=== PATIENT | female | born 1995 | race Two or more races ===

== ENCOUNTER 2022-02-09 16:01 | Outpatient (CLI) | payer OTHER | END 2022-02-09 17:23 | disposition home or self-care (01) | LOC: PRENATAL 16:01 | PROVIDERS: ATTEND Obstetrics & Gynecology Maternal & Fetal Medicine | DX: O35.0XX0 Maternal care for (suspected) central nervous system malformation in fetus, not applicable or unspecified (principal); O35.3XX0 Maternal care for (suspected) damage to fetus from viral disease in mother, not applicable or unspecified; O99.210 Obesity complicating pregnancy, unspecified trimester; O28.1 Abnormal biochemical finding on antenatal screening of mother; Z3A.20 20 weeks gestation of pregnancy ==

== ENCOUNTER 2022-05-06 15:10 | Outpatient (CLI) | payer OTHER | END 2022-05-06 16:45 | disposition home or self-care (01) | LOC: PRENATAL 15:10 | PROVIDERS: ATTEND Obstetrics & Gynecology Maternal & Fetal Medicine | DX: O26.849 Uterine size-date discrepancy, unspecified trimester (principal); O35.0XX0 Maternal care for (suspected) central nervous system malformation in fetus, not applicable or unspecified; O99.210 Obesity complicating pregnancy, unspecified trimester; O28.1 Abnormal biochemical finding on antenatal screening of mother ==

== ENCOUNTER 2022-06-13 12:25 | Outpatient (CLI) | payer OTHER | END 2022-06-14 10:17 | disposition home or self-care (01) | LOC: OBS/DEL 12:25 | PROVIDERS: ATTEND Obstetrics & Gynecology | DX: Z34.83 Encounter for supervision of other normal pregnancy, third trimester (principal) ==

== ENCOUNTER 2022-06-27 05:46 | Inpatient (IN) | payer OTHER ==
[~2022-06-27] VITALS: Ht 167.6 cm; Wt 137.9 kg
[2022-06-27] MEDS ORDERED: PRENATAL TABLE1 EAC3 PO (06:46)
[2022-06-27] MEDS ORDERED: VAZALORE81 MG PO (06:47)
== END 2022-07-01 17:05 | disposition home or self-care (01) | DRG 787 ==
LOC: LDR 05:46 → OB/GYN 05:46
PROVIDERS: ADMIT Obstetrics & Gynecology; ATTEND Obstetrics & Gynecology
PROC: 3E0DXGC Introduction of Other Therapeutic Substance into Mouth and Pharynx, External Approach (ICD-10-PCS; 2022-06-27)
PROC: 4A1HXCZ Monitoring of Products of Conception, Cardiac Rate, External Approach (ICD-10-PCS; 2022-06-27)
PROC: 3E033VJ Introduction of Other Hormone into Peripheral Vein, Percutaneous Approach (ICD-10-PCS; 2022-06-28)
PROC: 10D00Z1 Extraction of Products of Conception, Low, Open Approach (ICD-10-PCS; principal; 2022-06-28 21:00)
DX: O61.0 Failed medical induction of labor (principal); O99.13 Other diseases of the blood and blood-forming organs and certain disorders involving the immune mechanism complicating the puerperium; O62.1 Secondary uterine inertia; O32.8XX0 Maternal care for other malpresentation of fetus, not applicable or unspecified; O99.820 Streptococcus B carrier state complicating pregnancy; D69.6 Thrombocytopenia, unspecified; Z3A.40 40 weeks gestation of pregnancy; Z37.0 Single live birth; Z20.822 Contact with and (suspected) exposure to COVID-19

== ENCOUNTER 2022-07-06 19:16 | Inpatient (IN) | payer OTHER ==
[~2022-07-06] VITALS: Ht 167.6 cm; Wt 133.8 kg
[~2022-07-06 19:16] MED LIST: PRENATAL TABLE1 EAC3 PO; VAZALORE81 MG PO
== END 2022-07-22 12:04 | disposition home or self-care (01) | DRG 776 ==
LOC: ER 19:16 → OB/GYN 07-07 14:49
PROVIDERS: ADMIT Obstetrics & Gynecology; ATTEND Obstetrics & Gynecology
PROC: BW21ZZZ Computerized Tomography (CT Scan) of Abdomen and Pelvis (ICD-10-PCS; principal; 2022-07-07)
PROC: 8E0ZXY6 Isolation (ICD-10-PCS; 2022-07-08)
DX: O86.09 Infection of obstetric surgical wound, other surgical site (principal); B95.2 Enterococcus as the cause of diseases classified elsewhere; B96.29 Other Escherichia coli [E. coli] as the cause of diseases classified elsewhere; B95.61 Methicillin susceptible Staphylococcus aureus infection as the cause of diseases classified elsewhere; B96.89 Other specified bacterial agents as the cause of diseases classified elsewhere; Z20.822 Contact with and (suspected) exposure to COVID-19